=== PATIENT | male | born 1985 | race Caucasian/White ===

== ENCOUNTER 2017-02-19 10:40 | Emergency (ER) | payer OTHER ==
[2017-02-19 11:47] LABS: ANION GAP 12 mmol/L (0-20); BLOOD UREA NITROGEN 11 mg/dl (6-24); CALCIUM 8.9 mg/dl (8.5-10.5); CARBON DIOXIDE-VENOUS 23 mmol/L (22-32); CHLORIDE 109 mmol/l (96-110); CREATININE 0.68 mg/dl (0.60-1.30); GLUCOSE 91 mg/dL (70-110); POTASSIUM 4.1 mmol/L (3.7-5.1); SODIUM 140 mmol/L (135-145); eGFR VALUE FOR BLACK >90 mL/Min
[2017-02-19 12:10] LABS: C-REACTIVE PROTEIN <0.3 mg/dl (0-0.9)
[2017-02-19] MEDS ORDERED: NORCO 5-325 TA1 EACH PO (12:19)
[2017-02-19] MEDS ORDERED: CYCLOBENZAPRINE10 M1 PO (12:19)
== END 2017-02-19 12:31 ==
LOC: EDMED 10:40
PROVIDERS: Emergency Medicine
DX: M54.5 Low back pain (principal); R10.32 Left lower quadrant pain
CPT/HCPCS: J1885; J2270; J2405; J7030